=== PATIENT | female | born 1995 | race Caucasian/White ===

== ENCOUNTER 2017-07-04 15:54 | Inpatient (IN) | payer OTHER, SELFPAY ==
[2017-07-04 16:35] VITALS: BP 142/93; PULSE 91; RESP 18; TEMP 36.8
--- NOTE | 2017-07-04 16:43 | PCM.HP.STD ---
<Christiano Antonio - Last Filed: 07/04/17 16:43> Problem List (1) Opiate withdrawal Status: Acute (2) Alcoholism Status: Acute (3) Anxiety Status: Chronic (4) Polysubstance (excluding opioids) dependence Status: Chronic (5) Seizure disorder Status: Chronic (6) Asthma Status: Chronic (7) Irritable bowel Status: Chronic History of Present Illness Date of Admission: 07/04/17 Chief Complaint: opiate withdrawal The patient is a 21 year old F presenting to the medical stabilization program with acute opiate withdrawal. She has been using about 4-5 grams heroin per day for about a year with the last use being midnight this AM. Currently she is only using the heroin nasally, she has not been injecting. She also is abusing xanax, cocaine, alcohol, marijuana, and tobacco. She last drank 2 nights ago 1/2 bottle of bartolo. She also reports a hx of seizures 3 times, last one was 4 weeks ago, she is not sure why she has had seizures. She was placed on phenobarbital in [facility] during her last rehab but does not take this. She also has never had a neurologic workup. She has been using heroin for about 4 years total. She last used xanax 4-5 days ago. cocaine and pot use are rare. She has been homeless, but lately has been staying with her father. She smokes 1/2 ppd and has asthma for which she uses an inhaler. She has taken amoxicillin liquid for the last 10 days for strep throat (reports + strep test). She still has a sore throat. Her current withdrawal symptoms include hot and cold flashes, HUITRON, nausea and vomiting today, intolerance of PO intake, leg and arm cramping, runny nose, and anxiety. No skin wounds or rashes. [] Past Medical History Past Medical History (Chronic Problems): Chronic Problems Anxiety (Chronic) Polysubstance (excluding opioids) dependence (Chronic) Seizure disorder (Chronic) Asthma (Chronic) Irritable bowel (Chronic) Allergies No Known Allergies Allergy (Verified 07/04/17 16:26) Home Medications: Ambulatory Orders Medication Instructions Recorded Albuterol IH (ProAir) [Proair Hfa] 1 - 2 puff INHALATION Q4H PRN PRN 07/04/17 Amoxicillin [Amoxicillin] 880 mg PO Q12H 07/04/17 Buprenorphine HCl/Naloxone HCl 1 each SL Q12H PRN 07/04/17 [Suboxone 8 mg-2 mg Sl Film] Ondansetron [Zofran Odt] 4 mg PO Q6H PRN 07/04/17 Venlafaxine HCl [Venlafaxine HCl 150 mg PO DAILY 07/04/17 ER] Surgical History: no surgical history 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 Denies: Weight Change HEENT: Reports: Sore Throat. Denies: Head Aches, Sinus Congestion, Sinus Drainage Cardiovascular: Denies: Chest Pain, Palpitations Respiratory: Denies: Cough, Shortness of Breath, Shortness of breath at rest, Sputum production, Wheezing Gastrointestinal: Reports: Nausea, Vomiting. Denies: Abdominal Pain Genitourinary: Denies: Dysuria Musculoskeletal: Reports: - - leg and arm cramping. Denies: Joint Pain, Joint Tenderness Skin: Denies: Rash, Wounds Neurological: Reports: Headaches. Denies: Focal weakness, Numbness, Tingling Psychiatric: Denies: Anxiety, Depression, Homicidal Ideations, Suicidal Ideations Hematologic/ Lymphatic: Denies: Easy Bruising, Easy Bleeding VTE Information - Inpt Only VTE Present on Admission: No VTE Mechan Device Prophylaxis: SCD's VTE Pharm Prophylaxis ordered?: No Patient Problems: Active and Suspected Problems Opiate withdrawal (Acute) Alcoholism (Acute) - Physical Exam General: Alert, Oriented x3, Cooperative HEENT: Atraumatic, PERRLA, EOMI, Normocephalic Oral: - - tonsils swollen 2+ with white exudates. Neck: Supple, No JVD, Negative Carotid Bruits, - Lungs: Clear to auscultation, Normal air movement Cardiovascular: Regular rate, No murmurs Abdomen: Bowel Sounds Present, Soft, Non Tender Extremities: No edema, Capillary Refill Less than 3 Seconds Skin: No rashes, No breakdown Musculoskeletal: No Tenderness to Palpation of Joints or Extremities Neurological: Cranial nerves II-XII grossly intact Psych/Mental Status: Normal Affect, Appropriate, Alert and oriented to time, place, person, mood and affect Assessment/Plan Active and Suspected Problems Opiate withdrawal (Acute) Alcoholism (Acute) 1. Acute opiate withdrawal - begin medical stabilization protocol. Current nasal heroin user 4-5 grams per day for about a year, last use at midnight this AM. Failed [facility] rehab x 1 in the past. Her current symptoms include hot/cold flashes, muscle cramps, anxiety, rhinorrhea, nausea and vomiting, headache. 2. Polysubstance abuse - alcohol, xanax, cocaine, pot, nicotine. Monitor for alcohol/benzo withdrawal. Last drank half a bottle of liquor 2 days ago. Prn ativan if seizure. Nicotine patch, 1/2 ppd smoker. Occasional coke/pot use. Last xanax 4-5 days ago reportedly 10 mg. 3. Seizure disorder - no formal workup or diagnosis. The circumstances around these are unclear. At one point she was supposed to be on phenobarbital. Last reported witnessed seizure about 4 weeks ago. Possibly from drug withdrawal. Seizure precautions are in place. 4. Strep pharyngitis and tonsillitis - failed outpatient therapy with amox liquid. PE c/w acute strep pharyngitis. Check Rapid strep. Augmentin 875 BID. Check CBC BMP. 5. Asthma - albuterol prn 6. IBS - prn meds 7. Anxiety - home meds DVT ppx: not indicated. Pt ambulatory. This patient was seen by Christiano Antonio PA-C under the supervision of Doctor Verónica. <Mason Sanches - Last Filed: 07/04/17 17:29> History of Present Illness The patient is a 21 year old F [] Past Medical History Allergies No Known Allergies Allergy (Verified 07/04/17 16:26) - Physical Exam Weight: 159 lb 6.4 oz Body Mass Index (BMI) 31.1 Assessment/Plan Hospitalist note: I am seeing this patient in conjunction with hCristiano Antonio. I independently seen and examined the patient. History and physical, laboratory data and imaging studies reviewed. I agree with above admission and treatment plan. Patient was admitted for acute opioid withdrawal from using IV heroin for the past year. The patient is poor informant and keep going back and forth on multiple issues. She mentioned that she has been using multiple drugs. She is stated that she had seizure, last one was 4 weeks ago and circumstances about this is not clear. She has been using Xanax as well. - Physical Exam General: Alert, Oriented x3, Cooperative, tearful, anxious.. HEENT: Atraumatic, PERRLA, EOMI. Neck: Supple, No JVD, Negative Carotid Bruits, Trachea Midline, Thyroid Normal. Lungs: Clear to auscultation, Normal air movement, No rhonchi, No wheeze, No rales. Cardiovascular: Regular rate, Regular Rhythm, Normal S1, Normal S2, PMI Normal. Abdomen: Bowel Sounds Present, Soft, Non Tender, Non-Distended, No Hepato-splenomegaly. Extremities: No clubbing, No cyanosis, No edema Skin: No rashes, No breakdown Neurological: Neuro grossly intact Assessment and plan: #1 acute opiate withdrawal: Admitted for medical stabilization. Plan: CBC, BMP, blood alcohol level, urine drug screen, initiate [facility] protocol with tapering Subutex, serum test. #2 seizure disorder: History is not clear. Patient mentioned that she has 04 weeks ago. No formal diagnosis and she is not on treatment. She has been drinking alcohol occasionally but large amounts as well as using benzodiazepines. It could be withdrawal from alcohol drinking or his diabetes. Plan for Ativan as needed for seizure, seizure precautions. #3 other chronic medical problems stable, continue current medications as above. This note was generated with [employer] dictation software. It may contain incorrect words, spelling, and punctuation that were not noted in checking the note before signing. Code Visit Inpatient E&M: 35981 Init Hosp L2
[2017-07-04 16:50] VITALS: BMI 31.1
--- NOTE | 2017-07-04 17:05 | HP.PCM_ITS ---
<Christiano Antonio - Last Filed: 07/04/17 16:43> Problem List (1) Opiate withdrawal Status: Acute (2) Alcoholism Status: Acute (3) Anxiety Status: Chronic (4) Polysubstance (excluding opioids) dependence Status: Chronic (5) Seizure disorder Status: Chronic (6) Asthma Status: Chronic (7) Irritable bowel Status: Chronic History of Present Illness Date of Admission: 07/04/17 Chief Complaint: opiate withdrawal The patient is a 21 year old F presenting to the medical stabilization program with acute opiate withdrawal. She has been using about 4-5 grams heroin per day for about a year with the last use being midnight this AM. Currently she is only using the heroin nasally, she has not been injecting. She also is abusing xanax, cocaine, alcohol, marijuana, and tobacco. She last drank 2 nights ago 1/ 2 bottle of bartolo. She also reports a hx of seizures 3 times, last one was 4 weeks ago, she is not sure why she has had seizures. She was placed on phenobarbital in [facility] during her last rehab but does not take this. She also has never had a neurologic workup. She has been using heroin for about 4 years total. She last used xanax 4-5 days ago. cocaine and pot use are rare. She has been homeless, but lately has been staying with her father. She smokes 1/2 ppd and has asthma for which she uses an inhaler. She has taken amoxicillin liquid for the last 10 days for strep throat (reports + strep test). She still has a sore throat. Her current withdrawal symptoms include hot and cold flashes, HUITRON, nausea and vomiting today, intolerance of PO intake, leg and arm cramping, runny nose, and anxiety. No skin wounds or rashes. [] Past Medical History Past Medical History (Chronic Problems): Chronic Problems Anxiety (Chronic) Polysubstance (excluding opioids) dependence (Chronic) Seizure disorder (Chronic) Asthma (Chronic) Irritable bowel (Chronic) Allergies No Known Allergies Allergy (Verified 07/04/17 16:26) Home Medications: Ambulatory Orders Medication Instructions Recorded Albuterol IH (ProAir) [Proair Hfa] 1 - 2 puff INHALATION Q4H PRN PRN 07/04/17 Amoxicillin [Amoxicillin] 880 mg PO Q12H 07/04/17 Buprenorphine HCl/Naloxone HCl 1 each SL Q12H PRN 07/04/17 [Suboxone 8 mg-2 mg Sl Film] Ondansetron [Zofran Odt] 4 mg PO Q6H PRN 07/04/17 Venlafaxine HCl [Venlafaxine HCl 150 mg PO DAILY 07/04/17 ER] Surgical History: no surgical history 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 Denies: Weight Change HEENT: Reports: Sore Throat. Denies: Head Aches, Sinus Congestion, Sinus Drainage Cardiovascular: Denies: Chest Pain, Palpitations Respiratory: Denies: Cough, Shortness of Breath, Shortness of breath at rest, Sputum production, Wheezing Gastrointestinal: Reports: Nausea, Vomiting. Denies: Abdominal Pain Genitourinary: Denies: Dysuria Musculoskeletal: Reports: - - leg and arm cramping. Denies: Joint Pain, Joint Tenderness Skin: Denies: Rash, Wounds Neurological: Reports: Headaches. Denies: Focal weakness, Numbness, Tingling Psychiatric: Denies: Anxiety, Depression, Homicidal Ideations, Suicidal Ideations Hematologic/ Lymphatic: Denies: Easy Bruising, Easy Bleeding VTE Information - Inpt Only VTE Present on Admission: No VTE Mechan Device Prophylaxis: SCD's VTE Pharm Prophylaxis ordered?: No Patient Problems: Active and Suspected Problems Opiate withdrawal (Acute) Alcoholism (Acute) - Physical Exam General: Alert, Oriented x3, Cooperative HEENT: Atraumatic, PERRLA, EOMI, Normocephalic Oral: - - tonsils swollen 2+ with white exudates. Neck: Supple, No JVD, Negative Carotid Bruits, - Lungs: Clear to auscultation, Normal air movement Cardiovascular: Regular rate, No murmurs Abdomen: Bowel Sounds Present, Soft, Non Tender Extremities: No edema, Capillary Refill Less than 3 Seconds Skin: No rashes, No breakdown Musculoskeletal: No Tenderness to Palpation of Joints or Extremities Neurological: Cranial nerves II-XII grossly intact Psych/Mental Status: Normal Affect, Appropriate, Alert and oriented to time, place, person, mood and affect Assessment/Plan Active and Suspected Problems Opiate withdrawal (Acute) Alcoholism (Acute) 1. Acute opiate withdrawal - begin medical stabilization protocol. Current nasal heroin user 4-5 grams per day for about a year, last use at midnight this AM. Failed [facility] rehab x 1 in the past. Her current symptoms include hot/cold flashes, muscle cramps, anxiety, rhinorrhea, nausea and vomiting, headache. 2. Polysubstance abuse - alcohol, xanax, cocaine, pot, nicotine. Monitor for alcohol/benzo withdrawal. Last drank half a bottle of liquor 2 days ago. Prn ativan if seizure. Nicotine patch, 1/2 ppd smoker. Occasional coke/pot use. Last xanax 4-5 days ago reportedly 10 mg. 3. Seizure disorder - no formal workup or diagnosis. The circumstances around these are unclear. At one point she was supposed to be on phenobarbital. Last reported witnessed seizure about 4 weeks ago. Possibly from drug withdrawal. Seizure precautions are in place. 4. Strep pharyngitis and tonsillitis - failed outpatient therapy with amox liquid. PE c/w acute strep pharyngitis. Check Rapid strep. Augmentin 875 BID. Check CBC BMP. 5. Asthma - albuterol prn 6. IBS - prn meds 7. Anxiety - home meds DVT ppx: not indicated. Pt ambulatory. This patient was seen by Christiano Antonio PA-C under the supervision of Doctor Verónica. <Mason Sanches - Last Filed: 07/04/17 17:29> History of Present Illness The patient is a 21 year old F [] Past Medical History Allergies No Known Allergies Allergy (Verified 07/04/17 16:26) - Physical Exam Weight: 159 lb 6.4 oz Body Mass Index (BMI) 31.1 Assessment/Plan Hospitalist note: I am seeing this patient in conjunction with Christiano Antonio. I independently seen and examined the patient. History and physical, laboratory data and imaging studies reviewed. I agree with above admission and treatment plan. Patient was admitted for acute opioid withdrawal from using IV heroin for the past year. The patient is poor informant and keep going back and forth on multiple issues. She mentioned that she has been using multiple drugs. She is stated that she had seizure, last one was 4 weeks ago and circumstances about this is not clear. She has been using Xanax as well. - Physical Exam General: Alert, Oriented x3, Cooperative, tearful, anxious.. HEENT: Atraumatic, PERRLA, EOMI. Neck: Supple, No JVD, Negative Carotid Bruits, Trachea Midline, Thyroid Normal. Lungs: Clear to auscultation, Normal air movement, No rhonchi, No wheeze, No rales. Cardiovascular: Regular rate, Regular Rhythm, Normal S1, Normal S2, PMI Normal. Abdomen: Bowel Sounds Present, Soft, Non Tender, Non-Distended, No Hepato- splenomegaly. Extremities: No clubbing, No cyanosis, No edema Skin: No rashes, No breakdown Neurological: Neuro grossly intact Assessment and plan: #1 acute opiate withdrawal: Admitted for medical stabilization. Plan: CBC, BMP , blood alcohol level, urine drug screen, initiate [facility] protocol with tapering Subutex, serum test. #2 seizure disorder: History is not clear. Patient mentioned that she has 04 weeks ago. No formal diagnosis and she is not on treatment. She has been drinking alcohol occasionally but large amounts as well as using benzodiazepines. It could be withdrawal from alcohol drinking or his diabetes. Plan for Ativan as needed for seizure, seizure precautions. #3 other chronic medical problems stable, continue current medications as above. This note was generated with [employer] dictation software. It may contain incorrect words, spelling, and punctuation that were not noted in checking the note before signing. Code Visit Inpatient E&M: 52602 Init Hosp L2
[2017-07-04 17:39] LABS: Absolute Lymphocyte Count 1.99 X10^3/ul (0.83-4.51); Basophil# 0.01 X10^3/uL; Basophil% 0.2 % (0-1); Hematocrit 38.8 % (37-47); Hemoglobin 13.5 g/dl (12.0-15.0); Lymphocyte # 1.99 X10^3/ul (4.0); Lymphocyte % 36.7 % (19-41); Mean Corp Hgb Conc 34.8 g/gl (32-36); Mean Corpuscular Hgb 28.5 pg (27.0-32.0); Mean Platelet Vol. 10.2 fl (6.2-12.0); Monocyte# 0.42 X10^3/uL; Monocyte% 7.7 % (0-10); Neutrophil # 2.99 X10^3/uL (2.7-7.7); Neutrophil % 55.2 % (47-70); Platelet Count 311 K/mm3 (150-450); RBC Distribution Width CV 12.6 % (11.6-14.6); RBC Distribution Width SD 37.5 fl (35.1-43.9); Red Blood Count 4.73 M/mm3 (4.2-5.4); White Blood Count 5.4 K/mm3 (4.4-11.0)
[2017-07-04 17:40] LABS: POSITIVE COUNT NO; POSITIVE DIFFERENTIAL NO; POSITIVE MORPHOLOGY NO
[2017-07-04] MEDS: cloNIDine HCl 0.1 MG Tablet PO ×3 (17:43→21:58)
[2017-07-04 17:44] LABS: Anion Gap 6 (5-15); BUN 9 mg/dL (7-18); BUN/Creat Ratio 12.5 RATIO (10-20); Calcium,Total 9.2 mg/dL (8.5-10.1); Chloride 102 mmol/L (98-107); Creatinine, Serum 0.72 mg/dL (0.55-1.02); EST Glomerular Filtration Rate 109 mL/min (>60); Est Glom Filt Rate - Afr Amer 132 mL/min (>60); Estimated Creatinine Clearance 89.53 ml/min; Glucose 92 mg/dL (74-106); Potassium 3.9 mmol/L (3.5-5.1); Sodium Level 136 mmol/L (136-145)
[2017-07-04] MEDS: Ondansetron ODT 4 MG Tablet PO (17:44)
[2017-07-04] MEDS: Acetaminophen 500 MG Tablet PO ×2 (17:44→21:58)
[2017-07-04 18:20] LABS: Alcohol, Blood (Medical)-Serum < 3.0 mg/dL
[2017-07-04 18:29] LABS: Pregnancy, Serum, hCG Quali. NEGATIVE Negative (0-9 Nonpreg)
[2017-07-04] MEDS: Amox/Clavulanate 875 MG Tablet PO (18:29)
[2017-07-04] MEDS: Dicyclomine 10 MG Capsule 20 MG PO (18:32)
[2017-07-04] MEDS: Buprenorphine HCl 2 MG TAB.SUBL SL (18:34)
[2017-07-04 19:44] VITALS: BP 119/58; PULSE 106; RESP 16; TEMP 37.4; O2SAT 100
[2017-07-04] MEDS: QUEtiapine 25 MG Tablet PO (20:00)
[2017-07-04] MEDS: Loperamide 2 MG Capsule PO (20:35)
[2017-07-04] MEDS: Methocarbamol 750 MG Tablet PO (21:58)
[2017-07-05] VITALS (8 sets, daily range): BP systolic 94–114; BP diastolic 50–72; PULSE 86–121; RESP 14–20; TEMP 35.9–36.8; O2SAT 98
[2017-07-05] MEDS: cloNIDine HCl 0.1 MG Tablet PO ×6 (00:09→22:03)
[2017-07-05] MEDS: Ondansetron ODT 4 MG Tablet PO ×2 (00:09→09:51)
[2017-07-05] MEDS: traZODone 50 MG Tablet PO ×2 (00:51→22:03)
[2017-07-05] MEDS: chlordiazePOXIDE 25 MG Capsule PO ×4 (00:51→17:38)
[2017-07-05] MEDS: Buprenorphine HCl 2 MG TAB.SUBL SL ×3 (02:47→17:38)
[2017-07-05] MEDS: Methocarbamol 750 MG Tablet PO ×3 (04:28→19:45)
[2017-07-05] MEDS: Ibuprofen 600 MG Tablet PO ×2 (04:28→12:11)
[2017-07-05] MEDS: QUEtiapine 25 MG Tablet PO ×3 (05:58→19:45)
[2017-07-05 06:44] LABS: Magnesium 2.1 mg/dL (1.6-2.6); Phosphorus 3.5 mg/dL (2.5-4.9)
[2017-07-05] MEDS: Dicyclomine 10 MG Capsule 20 MG PO ×2 (09:50→22:03)
[2017-07-05] MEDS: LORazepam 1 MG Tablet 2 MG PO (09:50)
[2017-07-05] MEDS: Acetaminophen 500 MG Tablet PO (09:50)
[2017-07-05] MEDS: Thiamine Hydrochloride 100 MG Tablet PO (09:52)
[2017-07-05] MEDS: Amox/Clavulanate 875 MG Tablet PO ×2 (09:53→17:38)
[2017-07-05] MEDS: Folic Acid 1 MG Tablet PO (09:53)
--- NOTE | 2017-07-05 10:32 | NURSING ---
Called pts father, Fady Valencia. Made him aware of [employer]. Father states he will notify her mother and brother.
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
[2017-07-05 11:56] LABS: Amphetamine Urine VISTA NEGATIVE (<1000 ng/mL); Barbiturate Urine VISTA NEGATIVE (< 200 ng/mL); Benzodiazepine Urine VISTA POSITIVE (< 200 ng/mL); Cocaine Urine VISTA NEGATIVE (< 300 ng/mL); Ecstacy Urine VISTA NEGATIVE (< 500 ng/mL); Methadone Urine VISTA NEGATIVE (< 300 ng/mL); PCP Urine VISTA NEGATIVE (< 25 ng/mL); THC Urine VISTA NEGATIVE (< 50 ng/mL); Vista UDS pH Range 7
--- NOTE | 2017-07-05 17:13 | CHAPLAIN ---
Type of Pastoral Visit _x__ Initial Visit ___ Follow-up Visit ___ On-call Visit ___ General Patient Visit ___ Spiritual Assessment ___ Family Conference ___ Bereavement ___ Rapid Response ___ Code Blue ___ Other (describe below) Pastoral Care Referral From _x__ Patient ___ Family ___ Nurse ___ Physician ___ Manager Transfusion ___ Tester [employer]ed [employer] Boards ___ Other (describe below) Sacrament/Intervention ___ Active listening ___ Anointing ___ Restorationist ___ Bereavement ___ Communion ___ Shanda exploration ___ ___ Life review _x__ Prayer ___ Reconciliation ___ Sacrament of Sick _x__ Supportive presence ___ Wedding ___ Other (describe below) Pastoral Comments
--- NOTE | 2017-07-05 17:20 | PCA ---
Pt requested help in calling her brother, Elpidio. Due to his number being long distance, pt could not call from room telephone. Pt gave this workers compensation legal secretary Elpidio's number, , to try and call from workers compensation legal secretary phone and transfer call into room. YOLANDA left stating a patient was trying to get in touch with Elpidio and for him to please return phone call. Explained this to pt who was ok with VM left.
--- NOTE | 2017-07-05 17:25 | PCM.PN.HOSP ---
Patient Problems: Active and Suspected Problems Opiate withdrawal (Acute) Alcoholism (Acute) Subjective: Seen and examined. Patient has been sharing needles for last 1 month and uses IV and inhales fentanyl . Patient also drinks alcohol about half pint hard liquor daily. Overall, withdrawal symptoms are better but he still has visual hallucinations. Vitals/I&O's: Vital Signs Temp Pulse Resp BP Pulse Ox 98.2 F 99 18 103/50 L 100 07/05/17 12:18 07/05/17 12:18 07/05/17 12:18 07/05/17 12:18 07/04/17 19:44 Oxygen Delivery Method Room Air Weight: 159 lb 6.307 oz Body Mass Index (BMI) 31.1 Intake and Output for Last 24 Hours 07/03/17 07/04/17 07/05/17 23:59 23:59 23:59 Intake Total 780 / 780 Balance 780 / 780 General: Alert, Oriented x3, Cooperative HEENT: Atraumatic, PERRLA, EOMI, Normocephalic Oral: No Gingival or Mucosal Lesions/ Ulcerations Neck: Supple, No JVD, Negative Carotid Bruits Lungs: Clear to auscultation, Normal air movement, No rhonchi, No wheeze, No rales Cardiovascular: Regular rate, Regular Rhythm, Normal S1, Normal S2, No murmurs Abdomen: Bowel Sounds Present, Soft, Non Tender, Non-Distended Extremities: No edema, Capillary Refill Less than 3 Seconds Skin: No rashes, No breakdown Musculoskeletal: No Tenderness to Palpation of Joints or Extremities Neurological: Cranial nerves II-XII grossly intact, Neuro grossly intact Psych/Mental Status: Anxious, Hallucinations Microbiology Past 72 Hours 07/04/17 17:30 Mucosa - Throat Group A Streptococcus Rapid Screen - Preliminary Laboratory Results 07/04/17 17:19: Ethyl Alcohol < 3.0 07/04/17 17:19: Sodium 136, Potassium 3.9, Chloride 102, Carbon Dioxide 28.0, Anion Gap 6, BUN 9, Creatinine 0.72, Estim Creat Clear Calc 89.53, Est GFR (MDRD) Af Amer 132, Est GFR (MDRD) Non-Af 109, BUN/Creatinine Ratio 12.5, Glucose 92, Calcium 9.2 07/04/17 17:19: WBC 5.4, RBC 4.73, Hgb 13.5, Hct 38.8, MCV 82.0, MCH 28.5, MCHC 34.8, RDW 12.6, RDW Differential 37.5, Plt Count 311, MPV 10.2, Immature Gran % (Auto) 0.200, Neut % (Auto) 55.2, Lymph % (Auto) 36.7, [place] % (Auto) 7.7, Eos % (Auto) 0.0, Baso % (Auto) 0.2, Absolute Neuts (auto) 3.0, Absolute Lymphs (auto) 1.99, Total Counted Not Reportable 07/04/17 17:19: Serum , Qual NEGATIVE 07/05/17 06:00: Urine Opiates Screen POSITIVE H, Urine Methadone Screen NEGATIVE, Ur Barbiturates Screen NEGATIVE, Ur Phencyclidine Scrn NEGATIVE, Ur Amphetamines Screen NEGATIVE, U Methamphetamin-MDMA NEGATIVE, U Benzodiazepines Scrn POSITIVE H, Urine Cocaine Screen NEGATIVE, U Cannabinoids Screen NEGATIVE, Ur Drug Screen Comment 07/05/17 06:00: Phosphorus 3.5, Magnesium 2.1 Current Medications Acetaminophen (Tylenol) 500 mg PO Q4H PRN PRN PRN Reason: Temp > 100.4 F Last Admin: 07/05/17 09:50 Dose: 500 mg Al Hydroxide/Mg Hydroxide (Mylanta Ii) 30 ml PO Q6H PRN PRN PRN Reason: dyspesia Amoxicillin/Clavulanate [facility]assium ([facility]in [facility]t) [facility] Last Admin: 07/05/17 09:53 Dose: 875 mg Bisacodyl (Dulcolax) 10 mg RECTAL DAILY PRN PRN Reason: Constipation Buprenorphine HCl (Buprenorphine Hcl) 4 mg SL Q8H [facility] PRN Reason: Taper Stop: 07/07/17 21:59 Last Admin: 07/05/17 09:51 Dose: 4 mg Chlordiazepoxide (Librium) 50 mg PO Q6H [facility] PRN Reason: Taper Stop: 07/08/17 02:29 Last Admin: 07/05/17 12:10 Dose: 50 mg Clonidine (Catapres) 0.1 mg PO Q2H PRN PRN PRN Reason: Hot/Cold Sweats or Anxiety Last Admin: 07/05/17 09:51 Dose: 0.1 mg Clonidine (Catapres) 0.1 mg PO Q4 [facility] Last Admin: 07/05/17 14:50 Dose: Not Given Dicyclomine HCl (Bentyl) 20 mg PO Q6H PRN PRN PRN Reason: Abdomnial Discomfort Last Admin: 07/05/17 09:50 Dose: 20 mg Folic Acid (Folic Acid) 1 mg PO DAILY@0800 [facility] Last Admin: 07/05/17 09:53 Dose: 1 mg Hydroxyzine Pamoate (Vistaril) 50 mg PO Q6H PRN PRN PRN Reason: Mild Anxiety (score 1/3) Last Admin: 07/05/17 09:51 Dose: 50 mg Sodium Chloride () 250 mls @ 15 mls/hr IV .[id number] PRN PRN Reason: SALINE FLUSH Ibuprofen (Motrin) 600 mg PO Q8H PRN PRN PRN Reason: Mild-Moderate Pain (1-5/10) Last Admin: 07/05/17 12:11 Dose: 600 mg Loperamide HCl (Imodium) 2 mg PO Q2H PRN PRN PRN Reason: diarrhea, loose stools Last Admin: 07/04/17 20:35 Dose: 2 mg Lorazepam (Ativan) 2 mg IV X1 PRN Lorazepam (Ativan) 2 mg PO Q2H PRN PRN; Protocol PRN Reason: CIWA score > 8 but <15 Last Admin: 07/05/17 09:50 Dose: 2 mg Lorazepam (Ativan) 2 mg PO UD PRN; Protocol PRN Reason: CIWA score >/=15. Lorazepam (Ativan) 2 mg IV Q2H PRN PRN; Protocol PRN Reason: CIWA score > 8 but <15 Lorazepam (Ativan) 2 mg IV UD PRN; Protocol PRN Reason: CIWA score >/=15. Methocarbamol (Methocarbamol) 750 mg PO Q6H PRN PRN PRN Reason: Muscle Aches Last Admin: 07/05/17 12:10 Dose: 750 mg Multivitamins/Minerals (Multivitamin With Minerals) [facility] Last Admin: 07/05/17 09:58 Dose: Not Given Nicotine (Nicoderm Cq (Pbkc)) 21 mg TRANSDERM. DAILY [facility] Last Admin: 07/05/17 09:53 Dose: 21 mg Ondansetron HCl (Zofran Odt) 4 mg PO Q6H PRN PRN PRN Reason: NAUSEA Last Admin: 07/05/17 09:51 Dose: 4 mg Pramipexole Dihydrochloride (Mirapex) 0.25 mg PO Q12H PRN PRN PRN Reason: Restless Legs Quetiapine Fumarate (Seroquel) 25 mg PO Q6H PRN PRN PRN Reason: Moderate Anxiety (score 2/3) Last Admin: 07/05/17 12:10 Dose: 25 mg Senna (Senokot) 1 tablet PO QHS PRN PRN Reason: Constipation Sodium Chloride () 5 - 30 ml IV UD PRN PRN Reason: SALINE FLUSH Thiamine HCl (Vitamin B1) [facility] Last Admin: 07/05/17 09:52 Dose: 100 mg Trazodone HCl (Desyrel) 50 mg PO QHS [facility] Last Admin: 07/05/17 00:51 Dose: 50 mg Assessment/Plan Active and Suspected Problems Opiate withdrawal (Acute) Alcoholism (Acute) This 21-year-old female with history of chronic opioid use and dependence, predominantly IV fentanyl and inhalational Ventolin powder with recent history of IV needle associated cellulitis/possible abscess in right hand was admitted for stabilization of opioid and alcohol use withdrawal #1 acute opiate withdrawal: Admitted for medical stabilization. CBC and BMP are within normal limits. test negative. U tox positive for opioids and benzodiazepines. On [facility] protocol for stabilization of acute opioid including buprenorphine and other medications. 2. Chronic alcohol use and dependence and withdrawal: On Librium tapering dose and Ativan as needed. Drinks her bottle of Carol. #3 seizure disorder exact type and classification unclear: History is not clear. Patient mentioned that she has 4 weeks ago. No formal diagnosis and she is not on treatment. She has been drinking alcohol occasionally but large amounts as well as using benzodiazepines. It could be withdrawal from alcohol drinking or his diabetes. Plan for Ativan as needed for seizure, seizure precautions. #3 other chronic medical problems stable, continue current medications as above. Code Visit Inpatient E&M: [id number] [facility] Hosp L3
--- NOTE | 2017-07-05 17:32 | PN_ITS ---
Patient Problems: Active and Suspected Problems Opiate withdrawal (Acute) Alcoholism (Acute) Subjective: Seen and examined. Patient has been sharing needles for last 1 month and uses IV and inhales fentanyl . Patient also drinks alcohol about half pint hard liquor daily. Overall, withdrawal symptoms are better but he still has visual hallucinations. Vitals/I&O's: Vital Signs Temp Pulse Resp BP Pulse Ox 98.2 F 99 18 103/50 L 100 07/05/17 12:18 07/05/17 12:18 07/05/17 12:18 07/05/17 12:18 07/04/17 19:44 Oxygen Delivery Method Room Air Weight: 159 lb 6.307 oz Body Mass Index (BMI) 31.1 Intake and Output for Last 24 Hours 07/03/17 07/04/17 07/05/17 23:59 23:59 23:59 Intake Total 780 / 780 Balance 780 / 780 General: Alert, Oriented x3, Cooperative HEENT: Atraumatic, PERRLA, EOMI, Normocephalic Oral: No Gingival or Mucosal Lesions/ Ulcerations Neck: Supple, No JVD, Negative Carotid Bruits Lungs: Clear to auscultation, Normal air movement, No rhonchi, No wheeze, No rales Cardiovascular: Regular rate, Regular Rhythm, Normal S1, Normal S2, No murmurs Abdomen: Bowel Sounds Present, Soft, Non Tender, Non-Distended Extremities: No edema, Capillary Refill Less than 3 Seconds Skin: No rashes, No breakdown Musculoskeletal: No Tenderness to Palpation of Joints or Extremities Neurological: Cranial nerves II-XII grossly intact, Neuro grossly intact Psych/Mental Status: Anxious, Hallucinations Microbiology Past 72 Hours 07/04/17 17:30 Mucosa - Throat Group A Streptococcus Rapid Screen - Preliminary Laboratory Results 07/04/17 17:19: Ethyl Alcohol < 3.0 07/04/17 17:19: Sodium 136, Potassium 3.9, Chloride 102, Carbon Dioxide 28.0, Anion Gap 6, BUN 9, Creatinine 0.72, Estim Creat Clear Calc 89.53, Est GFR (MDRD ) Af Amer 132, Est GFR (MDRD) Non-Af 109, BUN/Creatinine Ratio 12.5, Glucose 92 , Calcium 9.2 07/04/17 17:19: WBC 5.4, RBC 4.73, Hgb 13.5, Hct 38.8, MCV 82.0, MCH 28.5, MCHC 34.8, RDW 12.6, RDW Differential 37.5, Plt Count 311, MPV 10.2, Immature Gran % (Auto) 0.200, Neut % (Auto) 55.2, Lymph % (Auto) 36.7, [place] % (Auto) 7.7, Eos % (Auto) 0.0, Baso % (Auto) 0.2, Absolute Neuts (auto) 3.0, Absolute Lymphs (auto ) 1.99, Total Counted Not Reportable 07/04/17 17:19: Serum , Qual NEGATIVE 07/05/17 06:00: Urine Opiates Screen POSITIVE H, Urine Methadone Screen NEGATIVE , Ur Barbiturates Screen NEGATIVE, Ur Phencyclidine Scrn NEGATIVE, Ur Amphetamines Screen NEGATIVE, U Methamphetamin-MDMA NEGATIVE, U Benzodiazepines Scrn POSITIVE H, Urine Cocaine Screen NEGATIVE, U Cannabinoids Screen NEGATIVE, Ur Drug Screen Comment 07/05/17 06:00: Phosphorus 3.5, Magnesium 2.1 Current Medications Acetaminophen (Tylenol) 500 mg PO Q4H PRN PRN PRN Reason: Temp > 100.4 F Last Admin: 07/05/17 09:50 Dose: 500 mg Al Hydroxide/Mg Hydroxide (Mylanta Ii) 30 ml PO Q6H PRN PRN PRN Reason: dyspesia Amoxicillin/Clavulanate Potassium (Augmentin Tablet) [facility] Last Admin: 07/05/17 09:53 Dose: 875 mg Bisacodyl (Dulcolax) 10 mg RECTAL DAILY PRN PRN Reason: Constipation Buprenorphine HCl (Buprenorphine Hcl) 4 mg SL Q8H [facility] PRN Reason: Taper Stop: 07/07/17 21:59 Last Admin: 07/05/17 09:51 Dose: 4 mg Chlordiazepoxide (Librium) 50 mg PO Q6H [facility] PRN Reason: Taper Stop: 07/08/17 02:29 Last Admin: 07/05/17 12:10 Dose: 50 mg Clonidine (Catapres) 0.1 mg PO Q2H PRN PRN PRN Reason: Hot/Cold Sweats or Anxiety Last Admin: 07/05/17 09:51 Dose: 0.1 mg Clonidine (Catapres) 0.1 mg PO Q4 [facility] Last Admin: 07/05/17 14:50 Dose: Not Given Dicyclomine HCl (Bentyl) 20 mg PO Q6H PRN PRN PRN Reason: Abdomnial Discomfort Last Admin: 07/05/17 09:50 Dose: 20 mg Folic Acid (Folic Acid) 1 mg PO DAILY@0800 [facility] Last Admin: 07/05/17 09:53 Dose: 1 mg Hydroxyzine Pamoate (Vistaril) 50 mg PO Q6H PRN PRN PRN Reason: Mild Anxiety (score 1/3) Last Admin: 07/05/17 09:51 Dose: 50 mg Sodium Chloride () 250 mls @ 15 mls/hr IV .[id number] PRN PRN Reason: SALINE FLUSH Ibuprofen (Motrin) 600 mg PO Q8H PRN PRN PRN Reason: Mild-Moderate Pain (1-5/10) Last Admin: 07/05/17 12:11 Dose: 600 mg Loperamide HCl (Imodium) 2 mg PO Q2H PRN PRN PRN Reason: diarrhea, loose stools Last Admin: 07/04/17 20:35 Dose: 2 mg Lorazepam (Ativan) 2 mg IV X1 PRN Lorazepam (Ativan) 2 mg PO Q2H PRN PRN; Protocol PRN Reason: CIWA score > 8 but <15 Last Admin: 07/05/17 09:50 Dose: 2 mg Lorazepam (Ativan) 2 mg PO UD PRN; Protocol PRN Reason: CIWA score >/=15. Lorazepam (Ativan) 2 mg IV Q2H PRN PRN; Protocol PRN Reason: CIWA score > 8 but <15 Lorazepam (Ativan) 2 mg IV UD PRN; Protocol PRN Reason: CIWA score >/=15. Methocarbamol (Methocarbamol) 750 mg PO Q6H PRN PRN PRN Reason: Muscle Aches Last Admin: 07/05/17 12:10 Dose: 750 mg Multivitamins/Minerals (Multivitamin With Minerals) [facility] Last Admin: 07/05/17 09:58 Dose: Not Given Nicotine (Nicoderm Cq (Pbkc)) 21 mg TRANSDERM. DAILY [facility] Last Admin: 07/05/17 09:53 Dose: 21 mg Ondansetron HCl (Zofran Odt) 4 mg PO Q6H PRN PRN PRN Reason: NAUSEA Last Admin: 07/05/17 09:51 Dose: 4 mg Pramipexole Dihydrochloride (Mirapex) 0.25 mg PO Q12H PRN PRN PRN Reason: Restless Legs Quetiapine Fumarate (Seroquel) 25 mg PO Q6H PRN PRN PRN Reason: Moderate Anxiety (score 2/3) Last Admin: 07/05/17 12:10 Dose: 25 mg Senna (Senokot) 1 tablet PO QHS PRN PRN Reason: Constipation Sodium Chloride () 5 - 30 ml IV UD PRN PRN Reason: SALINE FLUSH Thiamine HCl (Vitamin B1) 100 [facility] Last Admin: 07/05/17 09:52 Dose: 100 mg Trazodone HCl (Desyrel) 50 mg PO QHS [facility] Last Admin: 07/05/17 00:51 Dose: 50 mg Assessment/Plan Active and Suspected Problems Opiate withdrawal (Acute) Alcoholism (Acute) This 21-year-old female with history of chronic opioid use and dependence, predominantly IV fentanyl and inhalational Ventolin powder with recent history of IV needle associated cellulitis/possible abscess in right hand was admitted for stabilization of opioid and alcohol use withdrawal #1 acute opiate withdrawal: Admitted for medical stabilization. CBC and BMP are within normal limits. test negative. U tox positive for opioids and benzodiazepines. On [facility] protocol for stabilization of acute opioid including buprenorphine and other medications. 2. Chronic alcohol use and dependence and withdrawal: On Librium tapering dose and Ativan as needed. Drinks her bottle of Carol. #3 seizure disorder exact type and classification unclear: History is not clear. Patient mentioned that she has 4 weeks ago. No formal diagnosis and she is not on treatment. She has been drinking alcohol occasionally but large amounts as well as using benzodiazepines. It could be withdrawal from alcohol drinking or his diabetes. Plan for Ativan as needed for seizure, seizure precautions. #3 other chronic medical problems stable, continue current medications as above. Code Visit Inpatient E&M: [id number] [facility] [place] Hosp L3
[2017-07-05] MEDS: Loperamide 2 MG Capsule PO (19:41)
[2017-07-06] VITALS (8 sets, daily range): BP systolic 104–118; BP diastolic 49–75; PULSE 78–104; RESP 16–18; TEMP 36.3–37.1; O2SAT 97–100
[2017-07-06] MEDS: Ibuprofen 600 MG Tablet PO ×2 (02:34→15:20)
[2017-07-06] MEDS: Buprenorphine HCl 2 MG TAB.SUBL SL ×3 (02:34→21:41)
[2017-07-06] MEDS: chlordiazePOXIDE 25 MG Capsule PO ×3 (02:34→18:24)
[2017-07-06] MEDS: Methocarbamol 750 MG Tablet PO ×3 (06:06→21:41)
[2017-07-06] MEDS: cloNIDine HCl 0.1 MG Tablet PO ×4 (06:06→21:41)
[2017-07-06] MEDS: QUEtiapine 25 MG Tablet PO ×2 (06:06→18:20)
[2017-07-06] MEDS: Dicyclomine 10 MG Capsule 20 MG PO ×3 (06:06→21:41)
[2017-07-06] MEDS: Amox/Clavulanate 875 MG Tablet PO ×2 (07:29→18:20)
--- NOTE | 2017-07-06 10:46 | CASEMGMT ---
SW did attempt to speak w/pt however pt is quite sleepy at this time and was not ready to speak w/SW. SW will try again later today or tomorrow. JANET Galindo, BOOK PUBLISHER
[2017-07-06 11:07] LABS: HIV - WCH Non-Reactive (Nonreactive)
[2017-07-06] MEDS: LORazepam 1 MG Tablet 2 MG PO (15:19)
--- NOTE | 2017-07-06 16:20 | CHAPLAIN ---
Type of Pastoral Visit ___ Initial Visit _x__ Follow-up Visit ___ On-call Visit ___ General Patient Visit ___ Spiritual Assessment ___ Family Conference ___ Bereavement ___ Rapid Response ___ Code Blue ___ Other (describe below) Pastoral Care Referral From _x__ Patient ___ Family ___ Nurse ___ Physician ___ Pullman Conductor ___ Pharmacy Stock Clerk ___ Other (describe below) Sacrament/Intervention _x__ Active listening ___ Anointing ___ Scientology ___ Bereavement ___ Communion _x__ Shanda exploration ___ ___ Life review _x__ Prayer ___ Reconciliation ___ Sacrament of Sick _x__ Supportive presence ___ Wedding ___ Other (describe below) Pastoral Comments patient requests more prayer; pt says that she really needs to get through the next week; pt willing to go to rehab she says but has concerns about money; pt says other family members are addicts too; pt says that mother is a [employer] and wants to help her
--- NOTE | 2017-07-06 16:52 | PCM.PN.HOSP ---
Patient Problems: Active and Suspected Problems Opiate withdrawal (Acute) Alcoholism (Acute) Subjective: Patient has back pain and muscle aches mainly from the eye withdrawal symptoms. Vitals/I&O's: Vital Signs Temp Pulse Resp BP Pulse Ox 98.6 F 95 18 110/70 100 07/06/17 14:00 07/06/17 14:00 07/06/17 14:00 07/06/17 14:00 07/06/17 13:22 Oxygen Delivery Method Room Air Weight: 159 lb 6.307 oz Body Mass Index (BMI) 31.1 Intake and Output for Last 24 Hours 07/04/17 07/05/17 07/06/17 23:59 23:59 23:59 Intake Total 900 / 900 240 / 240 Balance 900 / 900 240 / 240 General: Alert, Oriented x3, Cooperative HEENT: Atraumatic, PERRLA, EOMI, Normocephalic Neck: Supple, No JVD, Negative Carotid Bruits Lungs: Clear to auscultation, Normal air movement, No rhonchi, No wheeze, No rales Cardiovascular: Regular rate, Regular Rhythm, Normal S1, Normal S2, No murmurs Abdomen: Bowel Sounds Present, Soft, Non Tender Extremities: No edema, Capillary Refill Less than 3 Seconds Skin: No rashes, No breakdown Musculoskeletal: No Tenderness to Palpation of Joints or Extremities Neurological: Cranial nerves II-XII grossly intact Psych/Mental Status: Normal Affect, Appropriate Microbiology Past 72 Hours 07/04/17 17:30 Mucosa - Throat Group A Streptococcus Rapid Screen - Final Laboratory Results 07/06/17 08:00: Hepatitis A IgM Ab Pending, Hep Bs Antigen Pending, Hep B Core IgM Ab Pending, Hepatitis C Ab (EIA) Pending 07/06/17 08:00: HIV 1&2 Antibody Non-Reactive Current Medications Acetaminophen (Tylenol) 500 mg PO Q4H PRN PRN PRN Reason: Temp > 100.4 F Last Admin: 07/05/17 09:50 Dose: 500 mg Al Hydroxide/Mg Hydroxide (Mylanta Ii) 30 ml PO Q6H PRN PRN PRN Reason: dyspesia Amoxicillin/Clavulanate Potassium (Augmentin Tablet) 875 mg PO BIDCM [facility] Last Admin: 07/06/17 07:29 Dose: 875 mg Bisacodyl (Dulcolax) 10 mg RECTAL DAILY PRN PRN Reason: Constipation Buprenorphine HCl (Buprenorphine Hcl) 2 mg SL Q12H [facility] PRN Reason: Taper Stop: 07/07/17 21:59 Last Admin: 07/06/17 10:12 Dose: 2 mg Chlordiazepoxide (Librium) 50 mg PO Q8H [facility] PRN Reason: Taper Stop: 07/08/17 02:29 Last Admin: 07/06/17 10:12 Dose: 50 mg Clonidine (Catapres) 0.1 mg PO Q2H PRN PRN PRN Reason: Hot/Cold Sweats or Anxiety Last Admin: 07/05/17 09:51 Dose: 0.1 mg Clonidine (Catapres) 0.1 mg PO Q4 [facility] Last Admin: 07/06/17 15:20 Dose: 0.1 mg Dicyclomine HCl (Bentyl) 20 mg PO Q6H PRN PRN PRN Reason: Abdomnial Discomfort Last Admin: 07/06/17 15:19 Dose: 20 mg Folic Acid (Folic Acid) 1 mg PO DAILY@0800 [facility] Last Admin: 07/06/17 07:37 Dose: Not Given Hydroxyzine Pamoate (Vistaril) 50 mg PO Q6H PRN PRN PRN Reason: Mild Anxiety (score 1/3) Last Admin: 07/06/17 07:29 Dose: 50 mg Sodium Chloride () 250 mls @ 15 mls/hr IV .[id number] PRN PRN Reason: SALINE FLUSH Ibuprofen (Motrin) 600 mg PO Q8H PRN PRN PRN Reason: Mild-Moderate Pain (1-5/10) Last Admin: 07/06/17 15:20 Dose: 600 mg Loperamide HCl (Imodium) 2 mg PO Q2H PRN PRN PRN Reason: diarrhea, loose stools Last Admin: 07/05/17 19:41 Dose: 2 mg Lorazepam (Ativan) 2 mg IV X1 PRN Lorazepam (Ativan) 2 mg PO Q2H PRN PRN; Protocol PRN Reason: CIWA score > 8 but <15 Last Admin: 07/06/17 15:19 Dose: 2 mg Lorazepam (Ativan) 2 mg PO UD PRN; Protocol PRN Reason: CIWA score >/=15. Lorazepam (Ativan) 2 mg IV Q2H PRN PRN; Protocol PRN Reason: CIWA score > 8 but <15 Lorazepam (Ativan) 2 mg IV UD PRN; Protocol PRN Reason: CIWA score >/=15. Methocarbamol (Methocarbamol) 750 mg PO Q6H PRN PRN PRN Reason: Muscle Aches Last Admin: 07/06/17 15:19 Dose: 750 mg Multivitamins/Minerals (Multivitamin With Minerals) [facility] Last Admin: 07/06/17 07:38 Dose: Not Given Nicotine (Nicoderm Cq (Pbkc)) 21 mg TRANSDERM. DAILY [facility] Last Admin: 07/06/17 07:29 Dose: 21 mg Ondansetron HCl (Zofran Odt) 4 mg PO Q6H PRN PRN PRN Reason: NAUSEA Last Admin: 07/05/17 09:51 Dose: 4 mg Pramipexole Dihydrochloride (Mirapex) 0.25 mg PO Q12H PRN PRN PRN Reason: Restless Legs Quetiapine Fumarate (Seroquel) 25 mg PO Q6H PRN PRN PRN Reason: Moderate Anxiety (score 2/3) Last Admin: 07/06/17 06:06 Dose: 25 mg Senna (Senokot) 1 tablet PO QHS PRN PRN Reason: Constipation Sodium Chloride () 5 - 30 ml IV UD PRN PRN Reason: SALINE FLUSH Thiamine HCl (Vitamin B1) [facility] Last Admin: 07/06/17 07:38 Dose: Not Given Trazodone HCl (Desyrel) 50 mg PO QHS [facility] Last Admin: 07/05/17 22:03 Dose: 50 mg Assessment/Plan Active and Suspected Problems Opiate withdrawal (Acute) Alcoholism (Acute) This 21-year-old female with history of chronic opioid use and dependence, predominantly IV fentanyl and inhalational Ventolin powder with recent history of IV needle associated cellulitis/possible abscess in right hand was admitted for stabilization of opioid and alcohol use withdrawal #1 acute opiate withdrawal: Admitted for medical stabilization. CBC and BMP are within normal limits. test negative. U tox positive for opioids and benzodiazepines. On [facility] protocol for stabilization of acute opioid including buprenorphine and other medications. Hepatitis panel is pending. HIV antibody test nonreactive. 2. Chronic alcohol use and dependence and withdrawal: On Librium tapering dose and Ativan as needed. Drinks her bottle of Carol. #3 seizure disorder exact type and classification unclear: History is not clear. Patient mentioned that she has 4 weeks ago. No formal diagnosis and she is not on treatment. She has been drinking alcohol occasionally but large amounts as well as using benzodiazepines. It could be withdrawal from alcohol drinking or his diabetes. Plan for Ativan as needed for seizure, seizure precautions. #3 other chronic medical problems stable, continue current medications as above. Microbiology Past 72 Hours 07/04/17 17:30 Mucosa - Throat Group A Streptococcus Rapid Screen - Final Laboratory Results 07/06/17 08:00: Hepatitis A IgM Ab Pending, Hep Bs Antigen Pending, Hep B Core IgM Ab Pending, Hepatitis C Ab (EIA) Pending 07/06/17 08:00: HIV 1&2 Antibody Non-Reactive Code Visit Inpatient E&M: [id number] [facility] H[facility] L3
[2017-07-06] MEDS: Pramipexole Di-HCl 0.25 MG Tablet PO (18:20)
[2017-07-06] MEDS: traZODone 50 MG Tablet PO (21:41)
[2017-07-07] MEDS: chlordiazePOXIDE 25 MG Capsule PO (01:06)
[2017-07-07] MEDS: Ibuprofen 600 MG Tablet PO (01:06)
[2017-07-07] MEDS: QUEtiapine 25 MG Tablet PO (01:06)
[2017-07-07] MEDS: cloNIDine HCl 0.1 MG Tablet PO ×2 (01:08→10:10)
[2017-07-07 01:11] VITALS: BP 98/56; PULSE 79; RESP 16; TEMP 36.6
--- NOTE | 2017-07-07 09:45 | PCM.DC ---
- Discharge Diagnoses Current Active Problems: Current Active and Chronic Problems Opiate withdrawal (Acute) Alcoholism (Acute) Anxiety (Chronic) Polysubstance (excluding opioids) dependence (Chronic) Seizure disorder (Chronic) Asthma (Chronic) Irritable bowel (Chronic) You will use the following diet at home:: Regular Discharge Activity: May Not Drive Additional Instructions: Follow-up with outpatient rehab as per [facility] recommendation. Allergies/Adverse Reactions: Allergies No Known Allergies Allergy (Verified 07/04/17 16:26) Medications to take at Discharge Albuterol IH (ProAir) [Proair Hfa] 1 - 2 puff INHALATION Q4H PRN PRN 07/04/17 Buprenorphine HCl/Naloxone HCl [Suboxone 8 mg-2 mg Sl Film] 1 each SL Q12H PRN 07/04/17 Ondansetron [Zofran Odt] 4 mg PO Q6H PRN 07/04/17 Venlafaxine HCl [Venlafaxine HCl ER] 150 mg PO DAILY 07/04/17 Folic Acid 1 mg PO DAILY@0800 tablet 07/07/17 Multivitamins,Ther W-Minerals [Multivitamin With Minerals] 1 tablet PO DAILYCM #0 tablet 07/07/17 Nicotine [Nicoderm Cq] 21 mg TRANSDERM. DAILY #0 patch 07/07/17 Thiamine Hydrochloride [Vitamin B1] 100 mg PO DAILYCM #0 tablet 07/07/17 Please follow up with your Primary Care Physician in: in 2 weeks
--- NOTE | 2017-07-07 09:46 | DS.PCM_ITS ---
Discharge Date and Diagnosis Date of Admission: 07/04/17 Date of Discharge: 07/07/17 - Primary Discharge Diagnosis Active and Suspected Problems #1 acute opiate withdrawal: Admitted for medical stabilization. 2. Right peritonsillar phlegmon with history of subacute tonsillitis: - Secondary Discharge Diagnosis Chronic Problems Anxiety (Chronic) Polysubstance (excluding opioids) dependence (Chronic) Seizure disorder (Chronic) Asthma (Chronic) Irritable bowel (Chronic) Hospital Course and Treatment Summary of Care Provided: This 21-year-old female with history of chronic opioid use and dependence, predominantly IV fentanyl and inhalational Ventolin powder with recent history of IV needle associated cellulitis/possible abscess in right hand was admitted for stabilization of opioid and alcohol use withdrawal General: Alert, Oriented x3, Cooperative HEENT: Atraumatic, PERRLA, EOMI, Normocephalic, about 2-3 cm tonsillar mass present on the right lateral pharyngeal area. No obvious exudate or bleeding. Since admission. Neck: Supple, No JVD, Negative Carotid Bruits Lungs: Clear to auscultation, Normal air movement, No rhonchi, No wheeze, No rales Cardiovascular: Regular rate, Regular Rhythm, Normal S1, Normal S2, No murmurs Abdomen: Bowel Sounds Present, Soft, Non Tender Extremities: No edema, Capillary Refill Less than 3 Seconds Skin: No rashes, No breakdown Musculoskeletal: No Tenderness to Palpation of Joints or Extremities Neurological: Cranial nerves II-XII grossly intact Psych/Mental Status: Normal Affect, Appropriate #1 acute opiate withdrawal: Admitted for medical stabilization. CBC and BMP are within normal limits. test negative. U tox positive for opioids and benzodiazepines. On [facility] protocol for stabilization of acute opioid including buprenorphine and other medications. Hepatitis panel is negative. HIV antibody test nonreactive. 2. Right peritonsillar phlegmon with history of subacute tonsillitis: As per the patient she took about 2 weeks of amoxicillin, low-dose but is not effective. She was started on IV Unasyn in the hospital. Discharged on 5 days of Augmentin. Patient also discharged on nystatin swish and swallow and probiotic. Chronic alcohol use and dependence and withdrawal: On Librium tapering dose and Ativan as needed. Drinks her bottle of Carol. #3 seizure disorder exact type and classification unclear: History is not clear. Patient mentioned that she has 4 weeks ago. No formal diagnosis and she is not on treatment. She has been drinking alcohol occasionally but large amounts as well as using benzodiazepines. It could be withdrawal from alcohol drinking or his diabetes. Plan for Ativan as needed for seizure, seizure precautions. #3 other chronic medical problems stable, continue current medications as above. Discharge medication reconciliation done. Discharge follow-up instructions discussed with the patient. Patient was advised to follow with the ENT Dr. Wells in 2 weeks. Patient is being discharged to inpatient drug rehab. Total time spent, exact 32 minutes on discharge meds reconciliation, examination , review of imaging and blood test and discussion with the patient on follow-up instructions. This note was generated with [employer] dictation software. Every effort was made to ensure accuracy, however computerized soil tester mistakes may persist. Discharge Activity: May Not Drive Home Medications: Medications to take at Discharge Albuterol IH (ProAir) [Proair Hfa] 1 - 2 puff INHALATION Q4H PRN PRN 07/04/17 Buprenorphine HCl/Naloxone HCl [Suboxone 8 mg-2 mg Sl Film] 1 each SL Q12H PRN 07/04/17 Ondansetron [Zofran Odt] 4 mg PO Q6H PRN 07/04/17 Venlafaxine HCl [Venlafaxine HCl ER] 150 mg PO DAILY 07/04/17 Amoxicillin/Potassium Clav [Amox Tr-K Clv 875-125 mg Tab] 1 ea PO BID #10 tab Folic Acid 1 mg PO DAILY@0800 tablet 07/07/17 Lactobacillus Acidophilus [Acidophilus] 1 tab PO BID #30 tab 07/07/17 Multivitamins,Ther W-Minerals [Multivitamin With Minerals] 1 tablet PO DAILYCM # 0 tablet 07/07/17 Nicotine [Nicoderm Cq] 21 mg TRANSDERM. DAILY #0 patch 07/07/17 Nystatin 500,000 unit PO 4X/DAY #100 ml 07/07/17 Thiamine Hydrochloride [Vitamin B1] 100 mg PO DAILYCM #0 tablet 07/07/17 Following Prescrptions Were Given to Patient: Amoxicillin/Potassium Clav [Amox Tr-K Clv 875-125 mg Tab] 1 ea PO BID #10 tab Lactobacillus Acidophilus [Acidophilus] 1 tab PO BID #30 tab Nystatin 500,000 unit PO 4X/DAY #100 ml Please follow up with your Primary Care Physician in: in 2 weeks Meaningful Use Info Meaningful Use Diagnoses (Choose all that apply): None applicable Code Visit Inpatient E&M: 27833 Disch Hosp
[2017-07-07 10:00] VITALS: BP 97/61; PULSE 78; RESP 18; TEMP 36.2
[2017-07-07 10:03] VITALS: BP 97/61; PULSE 78; RESP 18; TEMP 36.2; O2SAT 99
[2017-07-07] MEDS: Dicyclomine 10 MG Capsule 20 MG PO (10:09)
[2017-07-07] MEDS: Methocarbamol 750 MG Tablet PO (10:09)
[2017-07-07] MEDS: Amox/Clavulanate 875 MG Tablet PO (10:10)
[2017-07-07] MEDS: Buprenorphine HCl 2 MG TAB.SUBL SL (10:15)
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
[2017-07-07 12:07] LABS: HEPATITIS B SURFACE AG Negative (Negative); Hepatitis A IgM Antibody Negative (Negative); Hepatitis B Core AB IgM Negative (Negative)
[2017-07-07 13:55] LABS: Hep C Antibodies <0.1 s/co ratio (0.0-0.9)
== END 2017-07-07 12:20 | disposition home or self-care (01) | DRG 897 ==
PROVIDERS: Family Medicine; Admitting Provider Hospitalist; Visit Provider Internal Medicine
DX: F11.23 Opioid dependence with withdrawal (principal); F19.20 Other psychoactive substance dependence, uncomplicated; F10.239 Alcohol dependence with withdrawal, unspecified; J36 Peritonsillar abscess; F41.9 Anxiety disorder, unspecified; R44.1 Visual hallucinations; G40.909 Epilepsy, unspecified, not intractable, without status epilepticus; J45.909 Unspecified asthma, uncomplicated; K58.9 Irritable bowel syndrome, unspecified; Y90.0 Blood alcohol level of less than 20 mg/100 ml; F17.210 Nicotine dependence, cigarettes, uncomplicated; B95.0 Streptococcus, group A, as the cause of diseases classified elsewhere
CPT/HCPCS: 36415; 80048; 80074; 80307; 80320; 83735; 84100; 84703; 85025; 86703; 87880; 97802; 99406; G0480